=== PATIENT | female | born 1955 | race Caucasian/White ===

== ENCOUNTER 2019-01-28 06:54 | Day surgery (SDC) | payer MEDICARE ==
[2019-01-24 16:37] LABS: BASOPHILS # (AUTO) 0.1 X10'3 (0-0.2); BASOPHILS % (AUTO) 0.8 % (0-1); EOSINOPHILS # (AUTO) 0.5 X10'3 (0-0.9); EOSINOPHILS % (AUTO) 3.6 % (0-6); LYMPHOCYTES # (AUTO) 3.2 X10'3 (1.1-4.8); LYMPHOCYTES % (AUTO) 25.2 % (21-51); MEAN CORPUSCULAR HEMOGLOBIN 29.1 PG (27.0-31.0); MEAN CORPUSCULAR HGB CONC 32.5 g/dL (33.0-36.5); MEAN CORPUSCULAR VOLUME 89.6 FL (78-98); MEAN PLATELET VOLUME 7.6 FL (7.4-10.4); MONOCYTES # (AUTO) 0.9 X10'3 (0-0.9); NEUTROPHILS # (AUTO) 7.9 X10'3 (1.8-7.7); NEUTROPHILS % (AUTO) 63.4 % (42-75); PRE OP HEMOGLOBIN 13.3 g/dL (12.0-16.0); PRE OP PLATELET COUNT 379 X10'3 (140-440); RED BLOOD COUNT 4.58 X10'6 (4.20-5.60); RED CELL DISTRIBUTION WIDTH 14.3 % (11.5-14.5)
[2019-01-24 16:49] LABS: ALBUMIN 3.7 G/DL (3.4-5.0); ALKALINE PHOSPHATASE 118 IU/L (46-116); BLOOD UREA NITROGEN 21 MG/DL (7-18); BUN/CREATININE RATIO 22.1 (6.6-38.0); CALCIUM 9.2 MG/DL (8.5-10.1); CHLORIDE 109 MMOL/L (99-107); CREATININE 0.95 MG/DL (0.40-0.90); PRE OP ALT 24 U/L (30-65); PRE OP ANION GAP 11 (8-16); PRE OP AST 10 U/L (10-37); PRE OP BILIRUB, TOTAL 0.2 MG/DL (0.0-1.0); PRE OP GLUCOSE 97 MG/DL (70-104); PRE OP POTASSIUM 3.8 MMOL/L (3.4-5.1); PRE OP SODIUM 145 MMOL/L (135-145); TOTAL CARBON DIOXIDE 24.8 MMOL/L (24-32); TOTAL PROTEIN 7.3 G/DL (6.4-8.2); eGFR 59 ML/MIN
[~2019-01-28] VITALS: Ht 154.9 cm; Wt 137.9 kg
[~2019-01-28 06:54] MED LIST: ALBU8.5H8 IH; AMLO10TA PO; ATR0.5NEB IH; BUPIVAcaine/PF 2.5mg/ml (0.25%) 10ml vial ONE; CHOL10002 PO; FAMO20TA8 PO; FLUT1DIS4 INH; FURO-149 PO; GABA-532 PO; LEVO75TA7 PO; LISI40TA4 PO; LORA-835 PO; MELO-102 PO; MULT-1074 PO; POTA10TA15 PO; ROPI0.252 PO; TOPI50TA24 PO; TRIA15CR62 TP; VENL75TA4 PO
[2019-01-28 07:00] VITALS: BP 140/77
[2019-01-28] MEDS ORDERED: famotidine 20mg tablet PO ONE (07:30)
[2019-01-28] MEDS ORDERED: cefazolin/dext.iso 2gm/100 ML IV ONE (07:30)
[2019-01-28] MEDS ORDERED: ringers solution, lacted 1,000 ML IV SCH ×2 (07:30→07:41)
[2019-01-28] MEDS ORDERED: albuterol 2.5 MG/3 ML nebule NEB ONE (07:30)
[2019-01-28] MEDS ORDERED: morphine 4 MG/ML inj SYRINge IV PRN ×2 (07:45)
[2019-01-28] MEDS ORDERED: hydrALAZINE 20mg/ml inj. IV PRN (07:45)
[2019-01-28] MEDS ORDERED: ondansetron/PF 4mg/2ml inj IV PRN (07:45)
[2019-01-28] MEDS ORDERED: labetalol 20mg/4ml (5mg/ml) syringe IV PRN (07:45)
[2019-01-28] MEDS ORDERED: fentaNYL/PF 50MCG/1 ML 2ML syringe ONE (08:42)
[2019-01-28] MEDS ORDERED: MIDAZolam 5mg/5ml vial ONE (08:42)
[2019-01-28 09:09] VITALS: BP 110/81
--- NOTE | 2019-01-28 09:09 | NUR ---
Received from OR via [facility] , accompanied by Anesthesiologist ANAMARIA and report given by Anesthesiolgist. PATIENT WITH 20G PIV IN RIGHT HAND RUNNING LR AT 100. DENIES PAIN. LEFT WRIST DRESSING IS CDI. + CAP REFILL AND MOVEMENT. Addendum: 01/28/19 at 0988 by Klaus Granados RN, RN Amended: Links added.
[2019-01-28 09:19] VITALS: BP 124/67
[2019-01-28 09:29] VITALS: BP 120/68
[2019-01-28 09:39] VITALS: BP 114/63
--- NOTE | 2019-01-28 09:49 | NUR ---
ALL DC CRITERIA HAS BEEN MET FOR DC HOME. ALL INSTRUCTIONS COVERED WITH DAUGHTER AND PATIENT. ALL QUESTIONS ANSWERED, IV OUT WITHOUT COMPLICATIONS. DENIES PAIN. ICE TO WRIST SENT WITH PATIENT. AMBULATED AND VOIDED PRIOR TO LEAVING. TAKEN HOME IN PERSONAL VEHICLE BY HER DAUGHTER IN LAW. Addendum: 01/28/19 at 1004 by Klaus Granados RN, RN Amended: Links added.
== END 2019-01-28 09:49 | disposition home or self-care (01) ==
LOC: PAS 06:54
PROVIDERS: ATTEND Orthopaedic Surgery Hand Surgery
DX: G56.02 Carpal tunnel syndrome, left upper limb (principal); F31.9 Bipolar disorder, unspecified; G47.30 Sleep apnea, unspecified; J45.909 Unspecified asthma, uncomplicated; G89.29 Other chronic pain; E66.01 Morbid (severe) obesity due to excess calories; Z88.1 Allergy status to other antibiotic agents; Z88.8 Allergy status to other drugs, medicaments and biological substances; Z79.899 Other long term (current) drug therapy; Z91.041 Radiographic dye allergy status; Z68.43 Body mass index [BMI] 50.0-59.9, adult; Z98.51 Tubal ligation status; Z98.890 Other specified postprocedural states
CPT/HCPCS: 29848; 36415; 80053; 82948; 85025; 93005; J2250; J3010; J3490; A6449; A7000; J7120

== ENCOUNTER 2019-02-25 05:38 | Day surgery (SDC) | payer MEDICARE ==
[~2019-02-25] VITALS: Ht 154.9 cm; Wt 137.0 kg
[~2019-02-25 05:38] MED LIST changes: -BUPIVAcaine/PF 2.5mg/ml (0.25%) 10ml vial ONE; +albuterol 2.5 MG/3 ML nebule NEB ONE; +ceFAZolin 1,000 MG in NS 100ML IVPB IV ONE; +cefazolin/dext.iso 2gm/100 ML IV ONE; +famotidine 20mg tablet PO ONE; +ringers solution, lacted 1,000 ML IV SCH
[2019-02-25] MEDS ORDERED: LIDOcaine 1% (10mg/ml) 2ml vial ONE (06:10)
[2019-02-25 06:21] VITALS: BP 144/76
[2019-02-25] MEDS ORDERED: BUPIVAcaine/PF 2.5 mg/ml (0.25%) 30ml vial ONE (06:57)
[2019-02-25] MEDS ORDERED: BUPIVAcaine/PF 2.5mg/ml (0.25%) 10ml vial IJ ONE (07:00)
[2019-02-25] MEDS ORDERED: LIDOcaine 0.5% (5mg/ml) 50ml vial ONE (07:34)
[2019-02-25] MEDS ORDERED: fentaNYL/PF 50MCG/1 ML 2ML syringe ONE (07:39)
[2019-02-25] MEDS ORDERED: MIDAZolam 5mg/5ml vial ONE (07:39)
[2019-02-25 08:07] VITALS: BP 127/79
--- NOTE | 2019-02-25 08:07 | NUR ---
Received from OR via [facility] , accompanied by Anesthesiologist DAYDAY and report given by Anesthesiolgist. PATIENT WITH 20G PIV IN LEFT UE RUNNING LR AT 100. DENIES PAIN. WELLS TO RIGHT HAND, DRESSING IS CDI. DENIES PAIN. PATIENT VSS. Addendum: 02/25/19 at 0817 by Klaus Granados RN, RN Amended: Links added.
[2019-02-25 08:17] VITALS: BP 128/77
[2019-02-25 08:27] VITALS: BP 125/75
--- NOTE | 2019-02-25 08:37 | NUR ---
ALL DC CRITERIA HAS BEEN MET. IV TAKEN OUT WITHOUT COMPLICATIONS. ALL INSTRUCTIONS COVERED AND ALL QUESTIONS ANSWERED. DRESSINGS CDI. OUT VIA WHEELCHAIR TO PERSONAL VEHICLE WHERE PATIENT WAS SECURED IN AND DRIVEN HOME BY FAMILY. Addendum: 02/25/19 at 0839 by Klaus Granados RN, RN Amended: Links added.
[2019-02-25] MEDS ORDERED: hydrALAZINE 20mg/ml inj. IV ONE (08:39)
== END 2019-02-25 08:37 | disposition home or self-care (01) ==
LOC: PAS 05:38
PROVIDERS: ATTEND Orthopaedic Surgery Hand Surgery
DX: G56.01 Carpal tunnel syndrome, right upper limb (principal); J45.909 Unspecified asthma, uncomplicated; G47.30 Sleep apnea, unspecified; F31.9 Bipolar disorder, unspecified; G89.29 Other chronic pain; E03.9 Hypothyroidism, unspecified; E66.01 Morbid (severe) obesity due to excess calories; Z68.43 Body mass index [BMI] 50.0-59.9, adult; Z91.041 Radiographic dye allergy status; Z88.1 Allergy status to other antibiotic agents; Z88.8 Allergy status to other drugs, medicaments and biological substances; Z98.890 Other specified postprocedural states; Z98.51 Tubal ligation status; Z79.899 Other long term (current) drug therapy; Z72.89 Other problems related to lifestyle
CPT/HCPCS: 29848; 82948; J0360; J0690; J2001; J2250; J3010; J3490; A4215; A6449; A7000; J7120